=== PATIENT | male | born 1960 | race Caucasian/White ===

== ENCOUNTER 2019-04-24 15:02 | Outpatient (CLI) | payer MEDICARE ==
[2019-04-24 17:30] LABS: #Basophils 0.1 thou/uL (0.0-0.2); #Eosinphils 0.2 thou/uL (0.0-0.7); #Lymphocytes 2.3 thou/uL (1.20-3.40); #Monocytes 0.9 thou/uL (0.11-0.59); #Neutrophils 4.1 thou/uL (1.40-6.50); %Basophils 0.8 % (0.0-1.0); %Eosinophils 2.6 % (0.0-10.0); %Lymphocytes 30.2 % (21.0-51.0); %Monocytes 12.1 % (0.0-10.0); %Neutrophils 54.3 % (42.0-75.0); Hemoglobin 15.7 g/dL (14.0-18.0); Mean Corpuscular HGB CONC 32.6 g/dL (32.0-36.0); Mean Corpuscular Volume 92.1 fL (78.0-98.0); Mean Platelet Volume 8.6 fL (7.4-10.4); Platelet Count 200 thou/uL (130-400); RBC Distribution Width 13.2 % (11.5-14.5); Red Blood Cell (RBC) Count 5.22 mill/uL (4.70-6.10); White Blood Cell (WBC) Count 7.6 thou/uL (4.8-10.8)
[2019-04-24 17:35] LABS: PTT 29.4 SEC (22.9-36.1); Prothrombin Time 12.9 SEC (12.0-14.7)
[2019-04-24 17:49] LABS: ALT (SGPT) 17 U/L (8-55); AST (SGOT) 14 U/L (5-34); Albumin 3.9 g/dL (3.5-5.0); Alkaline Phosphatase 58 U/L (40-150); Anion Gap 13 mmol/L (10-20); BUN (Urea Nitrogen) 10 mg/dL (8.4-25.7); Bilirubin, Total 0.4 mg/dL (0.2-1.2); Calc. Creatinine Clearance 0 mL/min (70-130); Calcium 9.5 mg/dL (7.8-10.44); Carbon Dioxide 22 mmol/L (22-29); Chloride 108 mmol/L (98-107); Estimated GFR-MDRD Greater than 90; Globulin 2.9 g/dL (2.4-3.5); Glucose 103 mg/dL (70-105); Potassium 4.1 mmol/L (3.5-5.1); Protein, Total 6.8 g/dL (6.0-8.3); Sodium 139 mmol/L (136-145)
== END 2019-04-24 15:03 | disposition home or self-care (01) ==
LOC: LABBT 15:02
PROVIDERS: ATTEND Internal Medicine Cardiovascular Disease
DX: Z01.812 Encounter for preprocedural laboratory examination (principal); R07.9 Chest pain, unspecified
CPT/HCPCS: 80053; 85025; 85610; 85730

== ENCOUNTER 2019-05-01 06:55 | Day surgery (SDC) | payer MEDICARE ==
[2019-04-24 16:06] VITALS: BMI 57.8
[2019-05-01 08:29] LABS: Cardiac Risk 5.1 (Less than 4.5)
[2019-05-01] MEDS ORDERED: Midazolam HCl 2 mg/2 ml Vial ONE (08:52)
[2019-05-01] MEDS ORDERED: Fentanyl 100 MCG/2 ML VIAL ONE (08:52)
[2019-05-01] MEDS ORDERED: Nitroglycerin 100MG/250ML BOT 250 ML ONE (09:04)
[2019-05-01] MEDS ORDERED: Heparin 10,000 UNITS/1 ML VIAL ONE (09:04)
[2019-05-01] MEDS ORDERED: Verapamil 5 MG/2 ML VIAL ONE (09:04)
== END 2019-05-01 12:51 | disposition home or self-care (01) ==
LOC: CCL 06:55
PROVIDERS: ATTEND Internal Medicine Cardiovascular Disease
PROC: 4A023N7 Measurement of Cardiac Sampling and Pressure, Left Heart, Percutaneous Approach (ICD-10-PCS; principal; 2019-05-01)
PROC: B2001ZZ Plain Radiography of Single Coronary Artery using Low Osmolar Contrast (ICD-10-PCS; 2019-05-01)
DX: R07.89 Other chest pain (principal); I10 Essential (primary) hypertension; E11.9 Type 2 diabetes mellitus without complications; E78.00 Pure hypercholesterolemia, unspecified; E78.5 Hyperlipidemia, unspecified; F17.210 Nicotine dependence, cigarettes, uncomplicated; F32.9 Major depressive disorder, single episode, unspecified; G47.00 Insomnia, unspecified; G47.33 Obstructive sleep apnea (adult) (pediatric); L40.50 Arthropathic psoriasis, unspecified; E87.1 Hypo-osmolality and hyponatremia; E66.01 Morbid (severe) obesity due to excess calories; Z68.43 Body mass index [BMI] 50.0-59.9, adult; Z79.82 Long term (current) use of aspirin; Z79.84 Long term (current) use of oral hypoglycemic drugs; Z79.899 Other long term (current) drug therapy
CPT/HCPCS: 36416; 80061; 93458; 99152; C1769; J1644; J2250; J3010

== ENCOUNTER 2020-02-08 19:30 | Outpatient (CLI) | payer MEDICARE, OTHER | END 2020-02-08 19:31 | disposition home or self-care (01) | LOC: SLEEPLAB 19:30 | PROVIDERS: ATTEND Internal Medicine | DX: G47.33 Obstructive sleep apnea (adult) (pediatric) (principal); E66.9 Obesity, unspecified; K21.9 Gastro-esophageal reflux disease without esophagitis; R06.83 Snoring; R53.83 Other fatigue; F41.9 Anxiety disorder, unspecified; E11.9 Type 2 diabetes mellitus without complications; G47.00 Insomnia, unspecified; F32.9 Major depressive disorder, single episode, unspecified; Z68.43 Body mass index [BMI] 50.0-59.9, adult | CPT/HCPCS: 95811 ==

== ENCOUNTER 2023-10-02 00:57 | Inpatient (IN) | payer MEDICARE ==
[2023-10-02 01:55] LABS: #Basophils 0.1 thou/uL (0.0-0.2); #Eosinphils 0.1 thou/uL (0.0-0.7); #Monocytes 0.9 thou/uL (0.11-0.59); #Neutrophils 5.1 thou/uL (1.40-6.50); %Basophils 0.7 % (0.0-1.0); %Eosinophils 0.7 % (0.0-10.0); %Lymphocytes 25.9 % (21.0-51.0); %Monocytes 10.6 % (0.0-10.0); %Neutrophils 61.6 % (42.0-75.0); Hematocrit 43.4 % (42.0-52.0); Mean Corpuscular HGB CONC 34.6 g/dL (32.0-36.0); Mean Corpuscular Hemoglobin 31.4 pg (27.0-31.0); Mean Platelet Volume 11.4 fL (7.4-10.4); Platelet Count 190 10x3/uL (130-400); RBC Distribution Width 13.2 % (11.5-14.5); Red Blood Cell (RBC) Count 4.77 mill/uL (4.70-6.10); White Blood Cell (WBC) Count 8.3 10x3/uL (4.8-10.8)
[2023-10-02 02:22] LABS: ALT (SGPT) 87 U/L (8-55); AST (SGOT) 53 U/L (5-34); Albumin 3.7 g/dL (3.4-4.8); Alkaline Phosphatase 68 U/L (40-110); Anion Gap 15 mmol/L (10-20); BUN (Urea Nitrogen) 11 mg/dL (8.4-25.7); Bilirubin, Total 0.7 mg/dL (0.2-1.2); Calc. Creatinine Clearance 0 mL/min (70-130); Calcium 9.1 mg/dL (7.8-10.44); Carbon Dioxide 23 mmol/L (23-31); Chloride 103 mmol/L (98-107); Estimated GFR 98; Globulin 2.9 g/dL (2.4-3.5); Glucose 113 mg/dL (80-115); Potassium 3.5 mmol/L (3.5-5.1); Protein, Total 6.6 g/dL (5.8-8.1); Sodium 137 mmol/L (136-145)
[2023-10-02] MEDS ORDERED: HYDROcodone/Acetaminophen 5/325 mg Tablet PO PRN (02:42)
[2023-10-02] MEDS ORDERED: Acetaminophen 650 MG Suppository PR PRN (02:42)
[2023-10-02] MEDS ORDERED: Morphine 4 MG/ML VIAL SLOW IVP PRN (02:57)
[2023-10-02] MEDS ORDERED: Ondansetron PF 4 MG/2 ML Vial IVP PRN (03:00)
[2023-10-02] MEDS ORDERED: Ondansetron ODT 4 MG TAB SL PRN (03:00)
[2023-10-02] MEDS ORDERED: Aspirin 325 MG TAB ONE (03:15)
[2023-10-02] MEDS ORDERED: Zolpidem Tartrate 5 MG TAB PO PRN (03:22)
[2023-10-02] MEDS ORDERED: Dextrose 5% in Water 1,000 ML IV PRN (03:23)
[2023-10-02] MEDS ORDERED: Dextrose 50% Abboject 50 ML SYRINGE SLOW IVP PRN (03:23)
[2023-10-02] MEDS ORDERED: Polyethylene Glycol 3350 17 GM Packet PO PRN (03:23)
[2023-10-02] MEDS ORDERED: HumaLOG 300 UNITS/3 ML VIAL SC PRN (03:23)
[2023-10-02] MEDS ORDERED: Glucagon 1 MG/ML KIT IM PRN (03:23)
[2023-10-02] MEDS ORDERED: Cyclobenzaprine 10 MG TAB PO SCH (03:30)
[2023-10-02 03:48] LABS: Actual Bicarbonate (HCO3v) 26.1 mEq/L (22-28); Base Excess 2.9 mEq/L (-2.0 to +3.0); Calcium, Ionized (venous) 1.07 mmol/L (1.16-1.32); Chloride (VBG) 102 mmol/L (98-106); Hematocrit-VBG 46 % (42.0-52.0); Hemoglobin (Hb) 15.7 g/dL (13.1-17.2); Potassium (VBG) 3.68 mmol/L (3.70-5.30); Sodium 136 mmol/L (133-146); pH (venous) 7.479 (7.32-7.43)
[2023-10-02 03:52] LABS: #Basophils 0.1 thou/uL (0.0-0.2); #Eosinphils 0.1 thou/uL (0.0-0.7); #Monocytes 0.8 thou/uL (0.11-0.59); #Neutrophils 5.2 thou/uL (1.40-6.50); %Basophils 0.6 % (0.0-1.0); %Eosinophils 0.7 % (0.0-10.0); %Lymphocytes 26.7 % (21.0-51.0); %Neutrophils 61.3 % (42.0-75.0); Mean Corpuscular HGB CONC 34.9 g/dL (32.0-36.0); Mean Corpuscular Hemoglobin 32.5 pg (27.0-31.0); Mean Corpuscular Volume 93.1 fl (78.0-98.0); Mean Platelet Volume 10.5 fL (7.4-10.4); Platelet Count 185 10x3/uL (130-400); RBC Distribution Width 13.3 % (11.5-14.5); Red Blood Cell (RBC) Count 4.62 mill/uL (4.70-6.10); White Blood Cell (WBC) Count 8.4 10x3/uL (4.8-10.8)
[2023-10-02 04:03] LABS: Hemoglobin A1c 5.3 % (4.0-6.0)
[2023-10-02 04:07] LABS: INR-International Normal Ratio 1.2; PTT 35.2 sec (22.9-36.1); Prothrombin Time 15.4 sec (12.0-14.7)
[2023-10-02 04:22] LABS: ALT (SGPT) 86 U/L (8-55); AST (SGOT) 53 U/L (5-34); Albumin 3.7 g/dL (3.4-4.8); Alkaline Phosphatase 66 U/L (40-110); Anion Gap 16 mmol/L (10-20); BUN (Urea Nitrogen) 10 mg/dL (8.4-25.7); Bilirubin, Total 0.6 mg/dL (0.2-1.2); Calc. Creatinine Clearance 0 mL/min (70-130); Carbon Dioxide 23 mmol/L (23-31); Chloride 103 mmol/L (98-107); Estimated GFR 97; Globulin 2.8 g/dL (2.4-3.5); Glucose 107 mg/dL (80-115); Potassium 3.6 mmol/L (3.5-5.1); Protein, Total 6.5 g/dL (5.8-8.1); Sodium 138 mmol/L (136-145)
[2023-10-02 04:30] VITALS: BMI 53.1
[2023-10-02 04:31] LABS: Troponin I 0.127 ng/mL (< 0.028)
[2023-10-02] MEDS: Doxycycline 100 MG in Sodium Chloride 0.9% 100 ML IVPB SCH ×2 (04:31→19:11)
[2023-10-02] MEDS ORDERED: Heparin 25,000 units/D5W 500 ML ONE (04:45)
[2023-10-02] MEDS ORDERED: Cyclobenzaprine 10 MG TAB ONE (05:20)
[2023-10-02] MEDS ORDERED: Levothyroxine Sodium 125 MCG TAB ONE (07:44)
[2023-10-02] MEDS: Levothyroxine Sodium 125 MCG TAB PO SCH (07:48)
[2023-10-02 07:56] LABS: Troponin I 0.126 ng/mL (< 0.028)
[2023-10-02] MEDS: sulfaSALAzine 500 MG TAB PO SCH (09:07)
[2023-10-02] MEDS ORDERED: Pantoprazole 40 MG VIAL ONE (09:08)
[2023-10-02] MEDS: Pantoprazole 40 MG VIAL IVP SCH (09:21)
[2023-10-02] MEDS ORDERED: Iopamidol 370 76% 100 ML VIAL ONE (11:31)
[2023-10-02 11:33] LABS: Troponin I 0.123 ng/mL (< 0.028)
[2023-10-02 11:37] LABS: PTT Greater than 250.0 sec (22.9-36.1)
[2023-10-02 14:12] LABS: PTT 141.3 sec (22.9-36.1)
[2023-10-02] MEDS: Atorvastatin Calcium 10 MG TAB PO SCH (23:06)
[2023-10-02] MEDS: Heparin 25,000 units/D5W 500 ML IVPB SCH (23:15)
[2023-10-02] MEDS: HYDROcodone/Acetaminophen 5/325 mg Tablet PO PRN (23:28)
[2023-10-03] MEDS: Levothyroxine Sodium 125 MCG TAB PO SCH (05:24)
[2023-10-03] MEDS: Doxycycline 100 MG in Sodium Chloride 0.9% 100 ML IVPB SCH ×2 (05:24→16:12)
[2023-10-03] MEDS: Lisinopril 10 MG TAB PO SCH (10:11)
[2023-10-03] MEDS: Pantoprazole 40 MG VIAL IVP SCH (10:12)
[2023-10-03] MEDS: sulfaSALAzine 500 MG TAB PO SCH (10:12)
[2023-10-03] MEDS: HYDROcodone/Acetaminophen 5/325 mg Tablet PO PRN ×2 (10:15→20:58)
[2023-10-03] MEDS: Heparin 25,000 units/D5W 500 ML IVPB SCH (13:44)
[2023-10-03] MEDS: Atorvastatin Calcium 10 MG TAB PO SCH (20:58)
[2023-10-04] MEDS: Doxycycline 100 MG in Sodium Chloride 0.9% 100 ML IVPB SCH ×2 (03:50→15:28)
[2023-10-04] MEDS: HYDROcodone/Acetaminophen 5/325 mg Tablet PO PRN ×2 (04:19→16:51)
[2023-10-04] MEDS: Levothyroxine Sodium 125 MCG TAB PO SCH (05:45)
[2023-10-04 07:48] LABS: PTT 130.6 sec (22.9-36.1)
[2023-10-04] MEDS: sulfaSALAzine 500 MG TAB PO SCH (09:26)
[2023-10-04] MEDS: Lisinopril 10 MG TAB PO SCH (09:26)
[2023-10-04] MEDS: Pantoprazole 40 MG VIAL IVP SCH (09:26)
[2023-10-04] MEDS: Heparin 10,000 UNITS/ 10 ML VIAL SLOW IVP SCH (17:45)
[2023-10-04] MEDS: Atorvastatin Calcium 10 MG TAB PO SCH (20:43)
[2023-10-04] MEDS: Heparin 25,000 units/D5W 500 ML IVPB SCH (22:32)
[2023-10-05 00:14] LABS: PTT 131.6 sec (22.9-36.1)
[2023-10-05] MEDS: Doxycycline 100 MG in Sodium Chloride 0.9% 100 ML IVPB SCH ×2 (04:26→16:05)
[2023-10-05] MEDS: Levothyroxine Sodium 125 MCG TAB PO SCH (05:17)
[2023-10-05] MEDS: Heparin 10,000 UNITS/ 10 ML VIAL SLOW IVP SCH (08:14)
[2023-10-05 08:18] LABS: #Eosinphils 0.2 thou/uL (0.0-0.7); #Monocytes 0.9 thou/uL (0.11-0.59); %Basophils 0.2 % (0.0-1.0); %Eosinophils 2.1 % (0.0-10.0); %Monocytes 10.4 % (0.0-10.0); %Neutrophils 68.6 % (42.0-75.0); Hematocrit 40.6 % (42.0-52.0); Hemoglobin 13.8 g/dL (14.0-18.0); Mean Corpuscular Hemoglobin 32.2 pg (27.0-31.0); Mean Corpuscular Volume 94.6 fl (78.0-98.0); Mean Platelet Volume 10.5 fL (7.4-10.4); Platelet Count 188 10x3/uL (130-400); RBC Distribution Width 14.1 % (11.5-14.5); Red Blood Cell (RBC) Count 4.29 mill/uL (4.70-6.10); White Blood Cell (WBC) Count 8.8 10x3/uL (4.8-10.8)
[2023-10-05 08:36] LABS: Anion Gap 13 mmol/L (10-20); BUN (Urea Nitrogen) 6 mg/dL (8.4-25.7); Calc. Creatinine Clearance 225 mL/min (70-130); Calcium 8.5 mg/dL (7.8-10.44); Carbon Dioxide 25 mmol/L (23-31); Chloride 101 mmol/L (98-107); Estimated GFR 99; Glucose 107 mg/dL (80-115); Potassium 3.2 mmol/L (3.5-5.1); Sodium 136 mmol/L (136-145)
[2023-10-05] MEDS ORDERED: Potassium Chloride 20 MEQ TAB PO SCH (09:00)
[2023-10-05] MEDS: Lisinopril 10 MG TAB PO SCH (09:36)
[2023-10-05] MEDS: sulfaSALAzine 500 MG TAB PO SCH (09:38)
[2023-10-05] MEDS: HYDROcodone/Acetaminophen 5/325 mg Tablet PO PRN (09:39)
[2023-10-05] MEDS: Pantoprazole 40 MG VIAL IVP SCH (09:40)
[2023-10-05] MEDS ORDERED: Simethicone Chewable 80 MG TAB PO PRN (09:54)
[2023-10-05] MEDS ORDERED: Dexamethasone 4 MG TAB PO SCH (12:30)
[2023-10-05] MEDS: Gabapentin 300 MG CAP PO SCH ×2 (13:55→21:32)
[2023-10-05] MEDS: Dexamethasone 4 MG TAB PO SCH ×2 (16:53→23:21)
[2023-10-05] MEDS ORDERED: FLU VACC QS2023-24(6MOS UP)/PF 60 MCG/0.5 ML SYRINGE IM ONE (17:00)
[2023-10-05] MEDS ORDERED: Apixaban 5 MG TAB PO SCH (18:05)
[2023-10-05] MEDS: Atorvastatin Calcium 10 MG TAB PO SCH (21:32)
[2023-10-06] MEDS: Doxycycline 100 MG in Sodium Chloride 0.9% 100 ML IVPB SCH ×2 (03:39→16:13)
[2023-10-06] MEDS: Dexamethasone 4 MG TAB PO SCH ×4 (05:39→23:41)
[2023-10-06] MEDS: Levothyroxine Sodium 125 MCG TAB PO SCH (05:39)
[2023-10-06] MEDS: Pantoprazole 40 MG VIAL IVP SCH (08:32)
[2023-10-06] MEDS: sulfaSALAzine 500 MG TAB PO SCH (08:33)
[2023-10-06] MEDS: Gabapentin 300 MG CAP PO SCH ×3 (08:33→20:40)
[2023-10-06] MEDS: Apixaban 5 MG TAB PO SCH ×2 (08:33→20:40)
[2023-10-06] MEDS: Lisinopril 10 MG TAB PO SCH (08:33)
[2023-10-06] MEDS: HYDROcodone/Acetaminophen 5/325 mg Tablet PO PRN ×2 (08:42→15:27)
[2023-10-06] MEDS: Atorvastatin Calcium 10 MG TAB PO SCH (20:41)
[2023-10-07 04:57] LABS: #Monocytes 0.8 thou/uL (0.11-0.59); #Neutrophils 13.7 thou/uL (1.40-6.50); %Basophils 0.1 % (0.0-1.0); %Lymphocytes 5.6 % (21.0-51.0); %Monocytes 5.3 % (0.0-10.0); %Neutrophils 88.3 % (42.0-75.0); Hematocrit 43.7 % (42.0-52.0); Mean Corpuscular HGB CONC 34.3 g/dL (32.0-36.0); Mean Corpuscular Hemoglobin 32.3 pg (27.0-31.0); Mean Platelet Volume 11.8 fL (7.4-10.4); Platelet Count 218 10x3/uL (130-400); RBC Distribution Width 14.4 % (11.5-14.5); Red Blood Cell (RBC) Count 4.65 mill/uL (4.70-6.10); White Blood Cell (WBC) Count 15.5 10x3/uL (4.8-10.8)
[2023-10-07 05:32] LABS: Anion Gap 13 mmol/L (10-20); BUN (Urea Nitrogen) 9 mg/dL (8.4-25.7); Calc. Creatinine Clearance 250 mL/min (70-130); Calcium 9.6 mg/dL (7.8-10.44); Carbon Dioxide 27 mmol/L (23-31); Chloride 102 mmol/L (98-107); Estimated GFR 103; Glucose 129 mg/dL (80-115); Magnesium 2.3 mg/dL (1.6-2.6); Potassium 3.6 mmol/L (3.5-5.1); Sodium 138 mmol/L (136-145)
[2023-10-07] MEDS: Levothyroxine Sodium 125 MCG TAB PO SCH (05:42)
[2023-10-07] MEDS: Dexamethasone 4 MG TAB PO SCH ×4 (05:42→23:05)
[2023-10-07] MEDS: sulfaSALAzine 500 MG TAB PO SCH (09:23)
[2023-10-07] MEDS: Gabapentin 300 MG CAP PO SCH ×3 (09:23→20:01)
[2023-10-07] MEDS: Lisinopril 10 MG TAB PO SCH (09:23)
[2023-10-07] MEDS: Apixaban 5 MG TAB PO SCH ×2 (09:24→20:02)
[2023-10-07] MEDS: Pantoprazole 40 MG VIAL IVP SCH (09:24)
[2023-10-07] MEDS: Atorvastatin Calcium 10 MG TAB PO SCH (20:02)
[2023-10-08] MEDS: Dexamethasone 4 MG TAB PO SCH ×3 (06:04→17:42)
[2023-10-08] MEDS: Levothyroxine Sodium 125 MCG TAB PO SCH (06:04)
[2023-10-08 06:29] LABS: #Monocytes 0.7 thou/uL (0.11-0.59); #Neutrophils 12.2 thou/uL (1.40-6.50); %Basophils 0.1 % (0.0-1.0); %Lymphocytes 4.5 % (21.0-51.0); %Monocytes 5.3 % (0.0-10.0); %Neutrophils 89.4 % (42.0-75.0); Hematocrit 41.9 % (42.0-52.0); Hemoglobin 14.2 g/dL (14.0-18.0); Mean Corpuscular HGB CONC 33.9 g/dL (32.0-36.0); Mean Corpuscular Hemoglobin 32.1 pg (27.0-31.0); Mean Corpuscular Volume 94.6 fl (78.0-98.0); Mean Platelet Volume 11.8 fL (7.4-10.4); Platelet Count 213 10x3/uL (130-400); RBC Distribution Width 14.2 % (11.5-14.5); Red Blood Cell (RBC) Count 4.43 mill/uL (4.70-6.10); White Blood Cell (WBC) Count 13.7 10x3/uL (4.8-10.8)
[2023-10-08 06:59] LABS: Anion Gap 15 mmol/L (10-20); BUN (Urea Nitrogen) 13 mg/dL (8.4-25.7); Calc. Creatinine Clearance 250 mL/min (70-130); Calcium 8.7 mg/dL (7.8-10.44); Carbon Dioxide 25 mmol/L (23-31); Chloride 104 mmol/L (98-107); Estimated GFR 103; Glucose 149 mg/dL (80-115); Magnesium 2.3 mg/dL (1.6-2.6); Potassium 4.5 mmol/L (3.5-5.1); Sodium 139 mmol/L (136-145)
[2023-10-08] MEDS: Apixaban 5 MG TAB PO SCH ×2 (08:42→21:55)
[2023-10-08] MEDS: Lisinopril 10 MG TAB PO SCH (08:42)
[2023-10-08] MEDS: Pantoprazole 40 MG VIAL IVP SCH (08:42)
[2023-10-08] MEDS: sulfaSALAzine 500 MG TAB PO SCH (08:43)
[2023-10-08] MEDS: Gabapentin 300 MG CAP PO SCH ×3 (08:43→21:56)
[2023-10-08] MEDS: HumaLOG 300 UNITS/3 ML VIAL SC PRN ×2 (11:31→18:04)
[2023-10-08] MEDS: Atorvastatin Calcium 10 MG TAB PO SCH (21:55)
[2023-10-09] MEDS: Dexamethasone 4 MG TAB PO SCH ×3 (01:55→12:37)
[2023-10-09 05:33] LABS: #Monocytes 1.1 thou/uL (0.11-0.59); #Neutrophils 10.4 thou/uL (1.40-6.50); %Basophils 0.2 % (0.0-1.0); %Lymphocytes 6.3 % (21.0-51.0); %Monocytes 9.1 % (0.0-10.0); %Neutrophils 83.6 % (42.0-75.0); Hematocrit 43.5 % (42.0-52.0); Hemoglobin 14.5 g/dL (14.0-18.0); Mean Corpuscular HGB CONC 33.3 g/dL (32.0-36.0); Mean Corpuscular Hemoglobin 31.5 pg (27.0-31.0); Mean Corpuscular Volume 94.6 fl (78.0-98.0); Mean Platelet Volume 11.4 fL (7.4-10.4); Platelet Count 203 10x3/uL (130-400); RBC Distribution Width 14.2 % (11.5-14.5); White Blood Cell (WBC) Count 12.5 10x3/uL (4.8-10.8)
[2023-10-09] MEDS: Levothyroxine Sodium 125 MCG TAB PO SCH (05:42)
[2023-10-09 06:09] LABS: Anion Gap 10 mmol/L (10-20); BUN (Urea Nitrogen) 13 mg/dL (8.4-25.7); Calc. Creatinine Clearance 246 mL/min (70-130); Calcium 8.5 mg/dL (7.8-10.44); Carbon Dioxide 26 mmol/L (23-31); Chloride 105 mmol/L (98-107); Estimated GFR 102; Glucose 142 mg/dL (80-115); Magnesium 2.4 mg/dL (1.6-2.6); Potassium 4.4 mmol/L (3.5-5.1); Sodium 137 mmol/L (136-145)
[2023-10-09] MEDS: Pantoprazole 40 MG VIAL IVP SCH (09:48)
[2023-10-09] MEDS: Gabapentin 300 MG CAP PO SCH (09:48)
[2023-10-09] MEDS: Apixaban 5 MG TAB PO SCH (09:49)
[2023-10-09] MEDS: sulfaSALAzine 500 MG TAB PO SCH (09:49)
[2023-10-09] MEDS: Lisinopril 10 MG TAB PO SCH (09:50)
[2023-10-09 13:48] VITALS: BP 118/58; TEMP 97.3
[2023-10-12] MEDS ORDERED: Apixaban 5 MG TAB PO SCH (21:00)
== END 2023-10-09 15:00 | DRG 299 ==
LOC: ERS 00:57 → ERHOLD 02:42 → 2NO 15:55 → OBSVTOIN 10-03 11:44
PROVIDERS: ADMIT Internal Medicine; ATTEND Family Medicine
PROC: 5A09357 Assistance with Respiratory Ventilation, Less than 24 Consecutive Hours, Continuous Positive Airway Pressure (ICD-10-PCS; principal; 2023-10-03)
DX: I82.432 Acute embolism and thrombosis of left popliteal vein (principal); I26.92 Saddle embolus of pulmonary artery without acute cor pulmonale; I50.31 Acute diastolic (congestive) heart failure; J96.01 Acute respiratory failure with hypoxia; L03.116 Cellulitis of left lower limb; Z68.43 Body mass index [BMI] 50.0-59.9, adult; I5A Non-ischemic myocardial injury (non-traumatic); G47.33 Obstructive sleep apnea (adult) (pediatric); G89.29 Other chronic pain; M48.061 Spinal stenosis, lumbar region without neurogenic claudication; E66.01 Morbid (severe) obesity due to excess calories; I11.0 Hypertensive heart disease with heart failure; E03.9 Hypothyroidism, unspecified; E78.00 Pure hypercholesterolemia, unspecified; E11.51 Type 2 diabetes mellitus with diabetic peripheral angiopathy without gangrene; F17.210 Nicotine dependence, cigarettes, uncomplicated; M51.36 Other intervertebral disc degeneration, lumbar region; Z79.899 Other long term (current) drug therapy; Z79.84 Long term (current) use of oral hypoglycemic drugs; Z79.82 Long term (current) use of aspirin; Z98.890 Other specified postprocedural states
CPT/HCPCS: 36415; 36416; 70450; 71045; 71275; 80048; 80053; 82805; 83036; 83735; 83880; 84145; 84439; 84443; 84484; 85025; 85610; 85730; 93005; 93010; 93306; 93970; 96374; 96376; C9113; G0378; J1644; J1815; J3490; J8540; Q9967

== ENCOUNTER 2023-10-13 17:00 | Inpatient (IN) | payer MEDICARE ==
[2023-10-13] MEDS ORDERED: Zolpidem Tartrate 5 MG TAB PO PRN (19:39)
[2023-10-13] MEDS ORDERED: Calcium Carbonate 500 MG ChewTAB PO PRN (19:40)
[2023-10-13 19:41] VITALS: BMI 52.0
[2023-10-13] MEDS ORDERED: Glucagon 1 MG/ML KIT IM PRN (20:15)
[2023-10-13] MEDS ORDERED: Dextrose 5% in Water 1,000 ML IV PRN (20:15)
[2023-10-13] MEDS ORDERED: Dextrose 50% Abboject 50 ML SYRINGE IVP PRN (20:15)
[2023-10-13] MEDS ORDERED: Semaglutide [Ozempic] 1 MG/0.75 ML Pen.Injctr SC SCH (20:15)
[2023-10-13 20:27] LABS: #Monocytes 0.5 thou/uL (0.11-0.59); #Neutrophils 9.7 thou/uL (1.40-6.50); %Basophils 0.2 % (0.0-1.0); %Eosinophils 0.1 % (0.0-10.0); %Monocytes 4.6 % (0.0-10.0); %Neutrophils 88.3 % (42.0-75.0); Hematocrit 50.6 % (42.0-52.0); Mean Corpuscular HGB CONC 33.6 g/dL (32.0-36.0); Mean Corpuscular Hemoglobin 32.3 pg (27.0-31.0); Mean Platelet Volume 10.6 fL (7.4-10.4); Platelet Count 215 10x3/uL (130-400); RBC Distribution Width 14.4 % (11.5-14.5); Red Blood Cell (RBC) Count 5.27 mill/uL (4.70-6.10); White Blood Cell (WBC) Count 10.9 10x3/uL (4.8-10.8)
[2023-10-13 20:47] LABS: Anion Gap 11 mmol/L (10-20); BUN (Urea Nitrogen) 18 mg/dL (8.4-25.7); Calc. Creatinine Clearance 235 mL/min (70-130); Calcium 8.8 mg/dL (7.8-10.44); Carbon Dioxide 28 mmol/L (23-31); Chloride 102 mmol/L (98-107); Estimated GFR 101; Glucose 145 mg/dL (80-115); Potassium 4.6 mmol/L (3.5-5.1); Sodium 136 mmol/L (136-145)
[2023-10-13] MEDS: Dexamethasone 4 mg/ml Vial SLOW IVP SCH (20:53)
[2023-10-13] MEDS: Atorvastatin Calcium 10 MG TAB PO SCH (20:53)
[2023-10-13] MEDS: Gabapentin 300 MG CAP PO SCH (20:53)
[2023-10-13] MEDS: sulfaSALAzine 500 MG TAB PO SCH (20:53)
[2023-10-13] MEDS: HYDROcodone/Acetaminophen 5/325 mg Tablet PO PRN (22:07)
[2023-10-14] MEDS: Dexamethasone 4 mg/ml Vial SLOW IVP SCH ×3 (04:05→19:30)
[2023-10-14] MEDS: Levothyroxine Sodium 125 MCG TAB PO SCH (05:21)
[2023-10-14 06:46] LABS: Anion Gap 10 mmol/L (10-20); BUN (Urea Nitrogen) 18 mg/dL (8.4-25.7); Calc. Creatinine Clearance 251 mL/min (70-130); Calcium 8.9 mg/dL (7.8-10.44); Carbon Dioxide 31 mmol/L (23-31); Chloride 101 mmol/L (98-107); Estimated GFR 104; Glucose 116 mg/dL (80-115); Potassium 4.5 mmol/L (3.5-5.1); Sodium 137 mmol/L (136-145)
[2023-10-14] MEDS ORDERED: Pantoprazole 40 MG VIAL IVP SCH (09:00)
[2023-10-14] MEDS: Gabapentin 300 MG CAP PO SCH ×3 (09:32→20:46)
[2023-10-14] MEDS: sulfaSALAzine 500 MG TAB PO SCH ×2 (09:32→20:46)
[2023-10-14] MEDS: Lisinopril 10 MG TAB PO SCH (09:33)
[2023-10-14] MEDS: HYDROcodone/Acetaminophen 5/325 mg Tablet PO PRN ×2 (09:43→17:00)
[2023-10-14] MEDS: HumaLOG 300 UNITS/3 ML VIAL SC PRN ×2 (13:16→18:47)
[2023-10-14] MEDS: Atorvastatin Calcium 10 MG TAB PO SCH (20:46)
[2023-10-15] MEDS: HYDROcodone/Acetaminophen 5/325 mg Tablet PO PRN ×3 (00:21→08:54)
[2023-10-15] MEDS: Dexamethasone 4 mg/ml Vial SLOW IVP SCH ×3 (04:29→21:02)
[2023-10-15] MEDS: Levothyroxine Sodium 125 MCG TAB PO SCH (06:22)
[2023-10-15] MEDS: Gabapentin 300 MG CAP PO SCH ×3 (08:53→21:01)
[2023-10-15] MEDS: sulfaSALAzine 500 MG TAB PO SCH ×2 (08:53→21:01)
[2023-10-15] MEDS: Lisinopril 10 MG TAB PO SCH (09:01)
[2023-10-15] MEDS ORDERED: Polyethylene Glycol 3350 17 GM Packet PO PRN (10:48)
[2023-10-15] MEDS: HumaLOG 300 UNITS/3 ML VIAL SC PRN (13:35)
[2023-10-15] MEDS: Senokot S 8.6-50 MG TAB PO SCH (21:01)
[2023-10-15] MEDS: Atorvastatin Calcium 10 MG TAB PO SCH (21:01)
[2023-10-16] MEDS: Dexamethasone 4 mg/ml Vial SLOW IVP SCH ×3 (03:52→21:05)
[2023-10-16 04:14] LABS: #Monocytes 1.3 thou/uL (0.11-0.59); #Neutrophils 9.2 thou/uL (1.40-6.50); %Basophils 0.1 % (0.0-1.0); %Lymphocytes 6.8 % (21.0-51.0); %Monocytes 11.2 % (0.0-10.0); %Neutrophils 81.1 % (42.0-75.0); Hematocrit 50.3 % (42.0-52.0); Hemoglobin 16.8 g/dL (14.0-18.0); Mean Corpuscular HGB CONC 33.4 g/dL (32.0-36.0); Mean Corpuscular Hemoglobin 31.9 pg (27.0-31.0); Mean Corpuscular Volume 95.4 fl (78.0-98.0); Mean Platelet Volume 10.8 fL (7.4-10.4); Platelet Count 221 10x3/uL (130-400); RBC Distribution Width 14.2 % (11.5-14.5); Red Blood Cell (RBC) Count 5.27 mill/uL (4.70-6.10); White Blood Cell (WBC) Count 11.4 10x3/uL (4.8-10.8)
[2023-10-16 04:31] LABS: INR-International Normal Ratio 1.1; Prothrombin Time 15.1 sec (12.0-14.7)
[2023-10-16 04:36] LABS: Anion Gap 12 mmol/L (10-20); BUN (Urea Nitrogen) 14 mg/dL (8.4-25.7); Calc. Creatinine Clearance 267 mL/min (70-130); Calcium 8.6 mg/dL (7.8-10.44); Carbon Dioxide 27 mmol/L (23-31); Chloride 103 mmol/L (98-107); Estimated GFR 105; Glucose 135 mg/dL (80-115); Magnesium 2.2 mg/dL (1.6-2.6); Potassium 4.2 mmol/L (3.5-5.1); Sodium 138 mmol/L (136-145)
[2023-10-16] MEDS: Levothyroxine Sodium 125 MCG TAB PO SCH (05:49)
[2023-10-16] MEDS ORDERED: Lidocaine 1% (PF) 30 ML VIAL ONE (06:12)
[2023-10-16] MEDS: Lisinopril 10 MG TAB PO SCH (09:01)
[2023-10-16] MEDS: Senokot S 8.6-50 MG TAB PO SCH ×2 (09:01→21:08)
[2023-10-16] MEDS: sulfaSALAzine 500 MG TAB PO SCH ×2 (09:01→21:04)
[2023-10-16] MEDS: Gabapentin 300 MG CAP PO SCH ×3 (09:02→21:04)
[2023-10-16] MEDS: Polyethylene Glycol 3350 17 GM Packet PO SCH (09:02)
[2023-10-16] MEDS: HYDROcodone/Acetaminophen 5/325 mg Tablet PO PRN ×2 (10:17→15:14)
[2023-10-16] MEDS ORDERED: Iopamidol 370 76% 100 ML VIAL ONE (10:25)
[2023-10-16] MEDS ORDERED: FLU VACC QS2023-24(6MOS UP)/PF 60 MCG/0.5 ML SYRINGE IM ONE (20:00)
[2023-10-16] MEDS: Atorvastatin Calcium 10 MG TAB PO SCH (21:04)
[2023-10-17] MEDS: Dexamethasone 4 mg/ml Vial SLOW IVP SCH ×3 (04:23→21:34)
[2023-10-17] MEDS: Levothyroxine Sodium 125 MCG TAB PO SCH (06:15)
[2023-10-17] MEDS: HYDROcodone/Acetaminophen 5/325 mg Tablet PO PRN ×3 (07:47→17:03)
[2023-10-17] MEDS: sulfaSALAzine 500 MG TAB PO SCH ×2 (09:34→21:33)
[2023-10-17] MEDS: Senokot S 8.6-50 MG TAB PO SCH ×2 (09:34→21:34)
[2023-10-17] MEDS: Polyethylene Glycol 3350 17 GM Packet PO SCH (09:34)
[2023-10-17] MEDS: Gabapentin 300 MG CAP PO SCH ×3 (09:34→21:33)
[2023-10-17] MEDS: Lisinopril 10 MG TAB PO SCH (09:34)
[2023-10-17] MEDS: HumaLOG 300 UNITS/3 ML VIAL SC PRN (17:57)
[2023-10-17] MEDS: Atorvastatin Calcium 10 MG TAB PO SCH (21:34)
[2023-10-18] MEDS: Levothyroxine Sodium 125 MCG TAB PO SCH (05:19)
[2023-10-18] MEDS: Dexamethasone 4 mg/ml Vial SLOW IVP SCH ×3 (05:19→20:55)
[2023-10-18] MEDS: HYDROcodone/Acetaminophen 5/325 mg Tablet PO PRN ×3 (06:09→15:22)
[2023-10-18] MEDS: Lisinopril 10 MG TAB PO SCH (09:00)
[2023-10-18] MEDS: sulfaSALAzine 500 MG TAB PO SCH ×2 (09:00→20:55)
[2023-10-18] MEDS: Senokot S 8.6-50 MG TAB PO SCH ×2 (09:01→20:55)
[2023-10-18] MEDS: Gabapentin 300 MG CAP PO SCH ×3 (09:01→20:55)
[2023-10-18] MEDS: Polyethylene Glycol 3350 17 GM Packet PO SCH (09:06)
[2023-10-18] MEDS: HumaLOG 300 UNITS/3 ML VIAL SC PRN (18:04)
[2023-10-18] MEDS: Atorvastatin Calcium 10 MG TAB PO SCH (20:55)
[2023-10-19] MEDS: HYDROcodone/Acetaminophen 5/325 mg Tablet PO PRN ×5 (02:56→19:59)
[2023-10-19 04:11] LABS: #Monocytes 1.1 thou/uL (0.11-0.59); #Neutrophils 10.6 thou/uL (1.40-6.50); %Basophils 0.1 % (0.0-1.0); %Lymphocytes 6.9 % (21.0-51.0); %Monocytes 8.4 % (0.0-10.0); %Neutrophils 83.9 % (42.0-75.0); Hemoglobin 16.3 g/dL (14.0-18.0); Mean Corpuscular HGB CONC 33.3 g/dL (32.0-36.0); Mean Corpuscular Hemoglobin 31.7 pg (27.0-31.0); Mean Corpuscular Volume 95.3 fl (78.0-98.0); Mean Platelet Volume 11.4 fL (7.4-10.4); Platelet Count 199 10x3/uL (130-400); RBC Distribution Width 14.1 % (11.5-14.5); Red Blood Cell (RBC) Count 5.14 mill/uL (4.70-6.10); White Blood Cell (WBC) Count 12.7 10x3/uL (4.8-10.8)
[2023-10-19 04:40] LABS: Anion Gap 14 mmol/L (10-20); BUN (Urea Nitrogen) 13 mg/dL (8.4-25.7); Calc. Creatinine Clearance 263 mL/min (70-130); Calcium 8.2 mg/dL (7.8-10.44); Carbon Dioxide 26 mmol/L (23-31); Chloride 101 mmol/L (98-107); Estimated GFR 105; Glucose 166 mg/dL (80-115); Potassium 3.9 mmol/L (3.5-5.1); Sodium 137 mmol/L (136-145)
[2023-10-19] MEDS: Dexamethasone 4 mg/ml Vial SLOW IVP SCH ×3 (05:15→20:00)
[2023-10-19] MEDS: Levothyroxine Sodium 125 MCG TAB PO SCH (05:15)
[2023-10-19] MEDS: Gabapentin 300 MG CAP PO SCH ×3 (08:18→20:00)
[2023-10-19] MEDS: Lisinopril 10 MG TAB PO SCH (08:18)
[2023-10-19] MEDS: Senokot S 8.6-50 MG TAB PO SCH ×2 (08:18→19:58)
[2023-10-19] MEDS: sulfaSALAzine 500 MG TAB PO SCH ×2 (08:19→19:58)
[2023-10-19] MEDS: Polyethylene Glycol 3350 17 GM Packet PO SCH (08:29)
[2023-10-19] MEDS: HumaLOG 300 UNITS/3 ML VIAL SC PRN (17:41)
[2023-10-19] MEDS: Atorvastatin Calcium 10 MG TAB PO SCH (19:58)
[2023-10-20] MEDS: Dexamethasone 4 mg/ml Vial SLOW IVP SCH ×3 (04:38→20:28)
[2023-10-20] MEDS: Levothyroxine Sodium 125 MCG TAB PO SCH (05:58)
[2023-10-20] MEDS: HumaLOG 300 UNITS/3 ML VIAL SC PRN ×2 (06:01→17:51)
[2023-10-20] MEDS: Polyethylene Glycol 3350 17 GM Packet PO SCH (08:36)
[2023-10-20] MEDS: HYDROcodone/Acetaminophen 5/325 mg Tablet PO PRN ×4 (08:36→20:25)
[2023-10-20] MEDS: Lisinopril 10 MG TAB PO SCH (08:37)
[2023-10-20] MEDS: Senokot S 8.6-50 MG TAB PO SCH ×2 (08:37→20:27)
[2023-10-20] MEDS: sulfaSALAzine 500 MG TAB PO SCH ×2 (08:37→20:28)
[2023-10-20] MEDS: Gabapentin 300 MG CAP PO SCH ×3 (08:37→20:27)
[2023-10-20] MEDS: Atorvastatin Calcium 10 MG TAB PO SCH (20:28)
[2023-10-21] MEDS: Dexamethasone 4 mg/ml Vial SLOW IVP SCH ×3 (03:57→20:20)
[2023-10-21 04:41] LABS: INR-International Normal Ratio 1.1; PTT 37.1 sec (22.9-36.1); Prothrombin Time 14.3 sec (12.0-14.7)
[2023-10-21 04:48] LABS: Anion Gap 13 mmol/L (10-20); BUN (Urea Nitrogen) 16 mg/dL (8.4-25.7); Calc. Creatinine Clearance 271 mL/min (70-130); Calcium 8.5 mg/dL (7.8-10.44); Carbon Dioxide 25 mmol/L (23-31); Chloride 104 mmol/L (98-107); Estimated GFR 106; Glucose 242 mg/dL (80-115); Magnesium 1.9 mg/dL (1.6-2.6); Potassium 3.7 mmol/L (3.5-5.1); Sodium 138 mmol/L (136-145)
[2023-10-21] MEDS: Levothyroxine Sodium 125 MCG TAB PO SCH (05:45)
[2023-10-21] MEDS: HumaLOG 300 UNITS/3 ML VIAL SC PRN ×2 (05:47→18:23)
[2023-10-21 05:53] LABS: #Neutrophils 11.8 thou/uL (1.40-6.50); %Basophils 0.1 % (0.0-1.0); %Lymphocytes 6.8 % (21.0-51.0); %Monocytes 7.2 % (0.0-10.0); %Neutrophils 84.8 % (42.0-75.0); Hematocrit 48.1 % (42.0-52.0); Hemoglobin 15.9 g/dL (14.0-18.0); Mean Corpuscular HGB CONC 33.1 g/dL (32.0-36.0); Mean Corpuscular Volume 96.8 fl (78.0-98.0); Mean Platelet Volume 11.9 fL (7.4-10.4); Platelet Count 178 10x3/uL (130-400); RBC Distribution Width 14.4 % (11.5-14.5); Red Blood Cell (RBC) Count 4.97 mill/uL (4.70-6.10); White Blood Cell (WBC) Count 13.9 10x3/uL (4.8-10.8)
[2023-10-21] MEDS: Polyethylene Glycol 3350 17 GM Packet PO SCH (08:10)
[2023-10-21] MEDS: sulfaSALAzine 500 MG TAB PO SCH ×2 (08:10→20:20)
[2023-10-21] MEDS: Senokot S 8.6-50 MG TAB PO SCH ×2 (08:11→20:22)
[2023-10-21] MEDS: HYDROcodone/Acetaminophen 5/325 mg Tablet PO PRN ×4 (08:11→20:20)
[2023-10-21] MEDS: Lisinopril 10 MG TAB PO SCH (08:13)
[2023-10-21] MEDS: Gabapentin 300 MG CAP PO SCH ×3 (08:13→20:22)
[2023-10-21] MEDS: Atorvastatin Calcium 10 MG TAB PO SCH (20:20)
[2023-10-21 21:41] LABS: Bacteria/HPF 4+ HPF (None Seen); Bilirubin Negative (Negative); Blood, Urine 1+ (Negative); CAUTI Indications for Culture Dysuria,urgency,freq; Clarity Turbid (Clear); Glucose, Urine (Dipstick) 100 mg/dL (Negative); Ketone, Urine Negative (Negative); Leukocyte 500 Leu/uL (Negative); Nitrite Negative (Negative); Protein, Urine (Dipstick) Negative (Neg-Trace); Specific Gravity, Urine 1.019 (1.002-1.036); Squamous Epithelial 0-3 HPF (0-3); Urobilinogen Normal mg/dL (Less than 2); WBC/HPF Greater than 50 HPF (0-3); Yeast-Budding Rare HPF (None Seen); pH, Urine 6.5 (5.0-9.0)
[2023-10-21 22:12] LABS: Urine Culture Reflex Yes Yes
[2023-10-21] MEDS ORDERED: Morphine 2 MG/ML VIAL SLOW IVP SCH (22:45)
[2023-10-22] MEDS: Dexamethasone 4 mg/ml Vial SLOW IVP SCH ×3 (03:50→20:59)
[2023-10-22 04:21] LABS: #Basophils 0.1 thou/uL (0.0-0.2); #Monocytes 1.5 thou/uL (0.11-0.59); #Neutrophils 15.3 thou/uL (1.40-6.50); %Basophils 0.3 % (0.0-1.0); %Eosinophils 0.1 % (0.0-10.0); %Lymphocytes 7.1 % (21.0-51.0); %Monocytes 7.9 % (0.0-10.0); %Neutrophils 83.4 % (42.0-75.0); Hematocrit 48.2 % (42.0-52.0); Hemoglobin 16.5 g/dL (14.0-18.0); Mean Corpuscular HGB CONC 34.2 g/dL (32.0-36.0); Mean Corpuscular Hemoglobin 31.7 pg (27.0-31.0); Mean Corpuscular Volume 92.7 fl (78.0-98.0); Mean Platelet Volume 10.3 fL (7.4-10.4); Platelet Count 182 10x3/uL (130-400); RBC Distribution Width 13.8 % (11.5-14.5); White Blood Cell (WBC) Count 18.3 10x3/uL (4.8-10.8)
[2023-10-22 04:36] LABS: INR-International Normal Ratio 0.9; PTT 31.2 sec (22.9-36.1); Prothrombin Time 12.5 sec (12.0-14.7)
[2023-10-22 04:49] LABS: Anion Gap 10 mmol/L (10-20); BUN (Urea Nitrogen) 15 mg/dL (8.4-25.7); Calc. Creatinine Clearance 299 mL/min (70-130); Calcium 8.7 mg/dL (7.8-10.44); Carbon Dioxide 28 mmol/L (23-31); Chloride 103 mmol/L (98-107); Estimated GFR 109; Glucose 166 mg/dL (80-115); Magnesium 2.4 mg/dL (1.6-2.6); Potassium 4.3 mmol/L (3.5-5.1); Sodium 137 mmol/L (136-145)
[2023-10-22] MEDS ORDERED: EPINEPHrine 1 MG/ML VIAL ONE (08:19)
[2023-10-22] MEDS ORDERED: Vancomycin 1 GM VIAL ONE (08:20)
[2023-10-22] MEDS ORDERED: Thrombin 5000 UNITS/5 ML VIAL ONE (08:20)
[2023-10-22] MEDS ORDERED: Bupivacaine PF 0.5% 30 ML VIAL ONE (08:20)
[2023-10-22] MEDS: Gabapentin 300 MG CAP PO SCH ×3 (09:22→21:02)
[2023-10-22] MEDS: Levothyroxine Sodium 125 MCG TAB PO SCH (09:22)
[2023-10-22] MEDS: sulfaSALAzine 500 MG TAB PO SCH ×2 (09:23→21:06)
[2023-10-22] MEDS: Senokot S 8.6-50 MG TAB PO SCH ×2 (09:23→21:02)
[2023-10-22] MEDS: Polyethylene Glycol 3350 17 GM Packet PO SCH (09:23)
[2023-10-22] MEDS: Lisinopril 10 MG TAB PO SCH (09:23)
[2023-10-22] MEDS ORDERED: CEFAZOLIN 2 GM VIAL ONE (09:39)
[2023-10-22] MEDS ORDERED: Sodium Chloride 0.9% 100 ML ONE (09:39)
[2023-10-22] MEDS ORDERED: Sevoflurane 250 ML INH ANEST BOTTLE ONE (09:54)
[2023-10-22] MEDS ORDERED: PROPOFOL 20 ML ONE (09:57)
[2023-10-22] MEDS ORDERED: fentaNYL PF 100 MCG/2 ML SYRINGE ONE ×3 (09:57→15:05)
[2023-10-22] MEDS ORDERED: Rocuronium Bromide 10 MG/ML (10ML VIAL) ONE ×3 (09:58→11:25)
[2023-10-22] MEDS ORDERED: Lidocaine 2% PF 5 ML VIAL ONE (09:58)
[2023-10-22] MEDS ORDERED: Vecuronium 10 MG VIAL ONE ×2 (10:10→15:04)
[2023-10-22] MEDS ORDERED: Lidocaine 1% PF 5 ML VIAL ONE (10:10)
[2023-10-22] MEDS ORDERED: Dexamethasone 20 MG/5 ML VIAL ONE (10:10)
[2023-10-22] MEDS ORDERED: Ondansetron PF 4 MG/2 ML Vial ONE ×2 (10:10→16:07)
[2023-10-22] MEDS ORDERED: PROPOFOL 200 MG/20 ML VIAL ONE (10:10)
[2023-10-22] MEDS ORDERED: PHENYLEPHRINE-NS 100 MCG/ML 10 ML SYRINGE ONE (11:30)
[2023-10-22] MEDS ORDERED: Phenylephrine 40 MG/NS 250 ML 250 ML ONE (11:49)
[2023-10-22] MEDS ORDERED: Dexamethasone 4 mg/ml Vial ONE (11:55)
[2023-10-22] MEDS ORDERED: ePHEDrine Sulfate 50 MG/10 ML VIAL ONE (13:47)
[2023-10-22] MEDS ORDERED: CEFAZOLIN 1 GM VIAL ONE (14:17)
[2023-10-22] MEDS ORDERED: Dexmedetomidine 200 MCG/2 ML VIAL ONE (16:07)
[2023-10-22] MEDS ORDERED: SUGAMMADEX SODIUM 200 MG/2 ML VIAL ONE ×2 (16:20→16:22)
[2023-10-22] MEDS ORDERED: Bacitracin Zinc Ointment 30 gm TUBE ONE (16:52)
[2023-10-22] MEDS ORDERED: Ondansetron HCl/PF 4 MG/2 ML Vial IVP PRN (17:36)
[2023-10-22] MEDS ORDERED: Promethazine HCl 25 MG/ML VIAL IM PRN (17:36)
[2023-10-22] MEDS ORDERED: fentaNYL 50 mcg/mL 1 mL Vial ONE ×3 (17:58→18:48)
[2023-10-22] MEDS: CEFAZOLIN 2 GM in Sodium Chloride 0.9% 100 ML IVPB SCH (20:13)
[2023-10-22] MEDS: Atorvastatin Calcium 10 MG TAB PO SCH (21:02)
[2023-10-22] MEDS: tiZANidine HCl 4 MG TAB PO PRN (21:02)
[2023-10-22] MEDS: HYDROcodone/Acetaminophen 7.5/325 mg Tablet PO PRN (21:06)
[2023-10-22] MEDS: Sodium Chloride 0.9% 1,000 ML IV SCH (22:46)
[2023-10-23] MEDS: CEFAZOLIN 2 GM in Sodium Chloride 0.9% 100 ML IVPB SCH ×3 (01:39→17:47)
[2023-10-23] MEDS: Dexamethasone 4 mg/ml Vial SLOW IVP SCH ×3 (03:15→20:30)
[2023-10-23] MEDS: Levothyroxine Sodium 125 MCG TAB PO SCH (05:17)
[2023-10-23 05:43] LABS: #Monocytes 1.5 thou/uL (0.11-0.59); #Neutrophils 16.3 thou/uL (1.40-6.50); %Basophils 0.1 % (0.0-1.0); %Lymphocytes 4.1 % (21.0-51.0); %Monocytes 7.8 % (0.0-10.0); Hematocrit 41.5 % (42.0-52.0); Hemoglobin 14.1 g/dL (14.0-18.0); Mean Corpuscular Hemoglobin 32.2 pg (27.0-31.0); Mean Corpuscular Volume 94.7 fl (78.0-98.0); Mean Platelet Volume 10.4 fL (7.4-10.4); Platelet Count 147 10x3/uL (130-400); RBC Distribution Width 14.1 % (11.5-14.5); Red Blood Cell (RBC) Count 4.38 mill/uL (4.70-6.10); White Blood Cell (WBC) Count 18.7 10x3/uL (4.8-10.8)
[2023-10-23] MEDS: HYDROcodone/Acetaminophen 7.5/325 mg Tablet PO PRN ×4 (05:53→20:26)
[2023-10-23] MEDS: Sodium Chloride 0.9% 1,000 ML IV SCH (05:59)
[2023-10-23 06:11] LABS: Anion Gap 8 mmol/L (10-20); BUN (Urea Nitrogen) 15 mg/dL (8.4-25.7); Calc. Creatinine Clearance 285 mL/min (70-130); Calcium 8.3 mg/dL (7.8-10.44); Carbon Dioxide 30 mmol/L (23-31); Chloride 103 mmol/L (98-107); Estimated GFR 107; Glucose 169 mg/dL (80-115); Potassium 4.5 mmol/L (3.5-5.1); Sodium 136 mmol/L (136-145)
[2023-10-23] MEDS: Gabapentin 300 MG CAP PO SCH ×3 (08:14→20:24)
[2023-10-23] MEDS: tiZANidine HCl 4 MG TAB PO PRN (08:14)
[2023-10-23] MEDS: Polyethylene Glycol 3350 17 GM Packet PO SCH (08:14)
[2023-10-23] MEDS: Lisinopril 10 MG TAB PO SCH (08:14)
[2023-10-23] MEDS: Senokot S 8.6-50 MG TAB PO SCH ×2 (08:15→20:24)
[2023-10-23] MEDS: sulfaSALAzine 500 MG TAB PO SCH ×2 (08:26→20:24)
[2023-10-23 09:01] LABS: Actual Bicarbonate (HCO3a) 27.5 mEq/L (22-28); Analyzer IN Cardio OR; Base Excess (BEa) 2.3 mEq/L (-2.0 to +3.0); CO2 Tension 44.6 mmHg (35.0-45.0); Calcium, Ionized (arterial) 1.17 mmol/L (1.12-1.30); Hematocrit-ABG 46 % (42.0-52.0); Hemoglobin (Hb) 15.8 g/dL (14.0-18.0); O2 Tension (PaO2), arterial 311.5 mmHg (> 80.0); Potassium - ABG Lab 4.48 mmol/L (3.70-5.30); pH, Arterial 7.408 (7.35-7.45)
[2023-10-23 09:02] LABS: Puncture Site Arterial Line
[2023-10-23 09:11] LABS: Prothrombin Time 13.3 sec (12.0-14.7)
[2023-10-23] MEDS: HumaLOG 300 UNITS/3 ML VIAL SC PRN ×2 (11:45→17:47)
[2023-10-23] MEDS: Atorvastatin Calcium 10 MG TAB PO SCH (20:24)
[2023-10-24] MEDS: CEFAZOLIN 2 GM in Sodium Chloride 0.9% 100 ML IVPB SCH ×3 (01:02→16:32)
[2023-10-24] MEDS: HYDROcodone/Acetaminophen 7.5/325 mg Tablet PO PRN ×4 (04:24→20:30)
[2023-10-24] MEDS: Dexamethasone 4 mg/ml Vial SLOW IVP SCH ×3 (04:27→20:32)
[2023-10-24] MEDS: Levothyroxine Sodium 125 MCG TAB PO SCH (05:14)
[2023-10-24 05:36] LABS: #Monocytes 1.2 thou/uL (0.11-0.59); %Basophils 0.1 % (0.0-1.0); %Eosinophils 0.3 % (0.0-10.0); %Lymphocytes 7.9 % (21.0-51.0); %Monocytes 7.7 % (0.0-10.0); %Neutrophils 82.9 % (42.0-75.0); Hematocrit 38.3 % (42.0-52.0); Hemoglobin 12.8 g/dL (14.0-18.0); Mean Corpuscular HGB CONC 33.4 g/dL (32.0-36.0); Mean Corpuscular Volume 95.8 fl (78.0-98.0); Mean Platelet Volume 10.4 fL (7.4-10.4); Platelet Count 124 10x3/uL (130-400); RBC Distribution Width 14.3 % (11.5-14.5); White Blood Cell (WBC) Count 15.7 10x3/uL (4.8-10.8)
[2023-10-24 05:51] LABS: INR-International Normal Ratio 0.9; PTT 25.4 sec (22.9-36.1); Prothrombin Time 12.5 sec (12.0-14.7)
[2023-10-24 06:01] LABS: Anion Gap 9 mmol/L (10-20); BUN (Urea Nitrogen) 12 mg/dL (8.4-25.7); Calc. Creatinine Clearance 334 mL/min (70-130); Calcium 8.1 mg/dL (7.8-10.44); Carbon Dioxide 29 mmol/L (23-31); Chloride 104 mmol/L (98-107); Estimated GFR 113; Glucose 150 mg/dL (80-115); Sodium 138 mmol/L (136-145)
[2023-10-24] MEDS: Gabapentin 300 MG CAP PO SCH ×3 (09:23→20:32)
[2023-10-24] MEDS: sulfaSALAzine 500 MG TAB PO SCH ×2 (09:24→20:32)
[2023-10-24] MEDS: Lisinopril 10 MG TAB PO SCH (09:24)
[2023-10-24] MEDS: Senokot S 8.6-50 MG TAB PO SCH ×2 (09:25→20:33)
[2023-10-24] MEDS: Polyethylene Glycol 3350 17 GM Packet PO SCH (09:25)
[2023-10-24] MEDS: Morphine 2 MG/ML VIAL SLOW IVP PRN (12:36)
[2023-10-24] MEDS: HumaLOG 300 UNITS/3 ML VIAL SC PRN ×2 (16:41→22:01)
[2023-10-24] MEDS: Atorvastatin Calcium 10 MG TAB PO SCH (20:32)
[2023-10-25] MEDS: CEFAZOLIN 2 GM in Sodium Chloride 0.9% 100 ML IVPB SCH ×3 (00:46→16:36)
[2023-10-25] MEDS: Dexamethasone 4 mg/ml Vial SLOW IVP SCH ×3 (04:11→21:13)
[2023-10-25 04:48] LABS: #Eosinphils 0.2 thou/uL (0.0-0.7); #Monocytes 0.9 thou/uL (0.11-0.59); #Neutrophils 11.6 thou/uL (1.40-6.50); %Basophils 0.1 % (0.0-1.0); %Eosinophils 1.6 % (0.0-10.0); %Lymphocytes 8.1 % (21.0-51.0); %Monocytes 6.2 % (0.0-10.0); %Neutrophils 82.8 % (42.0-75.0); Hematocrit 38.2 % (42.0-52.0); Hemoglobin 12.7 g/dL (14.0-18.0); Mean Corpuscular HGB CONC 33.2 g/dL (32.0-36.0); Mean Corpuscular Hemoglobin 31.9 pg (27.0-31.0); Mean Platelet Volume 10.9 fL (7.4-10.4); Platelet Count 134 10x3/uL (130-400); RBC Distribution Width 14.3 % (11.5-14.5); Red Blood Cell (RBC) Count 3.98 mill/uL (4.70-6.10)
[2023-10-25 05:02] LABS: PTT 26.2 sec (22.9-36.1); Prothrombin Time 13.1 sec (12.0-14.7)
[2023-10-25] MEDS: HYDROcodone/Acetaminophen 7.5/325 mg Tablet PO PRN ×2 (05:16→11:49)
[2023-10-25] MEDS: Levothyroxine Sodium 125 MCG TAB PO SCH (05:17)
[2023-10-25 05:24] LABS: Anion Gap 9 mmol/L (10-20); BUN (Urea Nitrogen) 14 mg/dL (8.4-25.7); Calc. Creatinine Clearance 299 mL/min (70-130); Calcium 8.2 mg/dL (7.8-10.44); Carbon Dioxide 29 mmol/L (23-31); Chloride 103 mmol/L (98-107); Estimated GFR 109; Glucose 202 mg/dL (80-115); Magnesium 1.9 mg/dL (1.6-2.6); Potassium 4.1 mmol/L (3.5-5.1); Sodium 137 mmol/L (136-145)
[2023-10-25] MEDS: HumaLOG 300 UNITS/3 ML VIAL SC PRN (06:10)
[2023-10-25] MEDS: Gabapentin 300 MG CAP PO SCH ×3 (10:01→21:12)
[2023-10-25] MEDS: Lisinopril 10 MG TAB PO SCH (10:02)
[2023-10-25] MEDS: Polyethylene Glycol 3350 17 GM Packet PO SCH (10:03)
[2023-10-25] MEDS: sulfaSALAzine 500 MG TAB PO SCH ×2 (10:03→21:12)
[2023-10-25] MEDS: Senokot S 8.6-50 MG TAB PO SCH ×2 (10:03→21:25)
[2023-10-25] MEDS: Morphine 2 MG/ML VIAL SLOW IVP PRN (21:09)
[2023-10-25] MEDS: Atorvastatin Calcium 10 MG TAB PO SCH (21:12)
[2023-10-25] MEDS: tiZANidine HCl 4 MG TAB PO PRN (21:12)
[2023-10-26] MEDS: CEFAZOLIN 2 GM in Sodium Chloride 0.9% 100 ML IVPB SCH ×3 (00:35→17:00)
[2023-10-26] MEDS: HYDROcodone/Acetaminophen 7.5/325 mg Tablet PO PRN ×3 (00:36→14:57)
[2023-10-26 04:43] LABS: #Eosinphils 0.2 thou/uL (0.0-0.7); #Monocytes 0.7 thou/uL (0.11-0.59); #Neutrophils 9.8 thou/uL (1.40-6.50); %Basophils 0.3 % (0.0-1.0); %Eosinophils 1.4 % (0.0-10.0); %Lymphocytes 8.9 % (21.0-51.0); %Monocytes 5.6 % (0.0-10.0); %Neutrophils 81.9 % (42.0-75.0); Hematocrit 40.1 % (42.0-52.0); Hemoglobin 13.4 g/dL (14.0-18.0); Mean Corpuscular HGB CONC 33.4 g/dL (32.0-36.0); Mean Corpuscular Hemoglobin 31.5 pg (27.0-31.0); Mean Corpuscular Volume 94.4 fl (78.0-98.0); Mean Platelet Volume 10.5 fL (7.4-10.4); Platelet Count 146 10x3/uL (130-400); RBC Distribution Width 14.2 % (11.5-14.5); Red Blood Cell (RBC) Count 4.25 mill/uL (4.70-6.10); White Blood Cell (WBC) Count 11.9 10x3/uL (4.8-10.8)
[2023-10-26] MEDS: Levothyroxine Sodium 125 MCG TAB PO SCH (04:58)
[2023-10-26] MEDS: Dexamethasone 4 mg/ml Vial SLOW IVP SCH ×3 (04:58→22:14)
[2023-10-26 05:03] LABS: INR-International Normal Ratio 0.9; PTT 27.3 sec (22.9-36.1)
[2023-10-26 05:28] LABS: Anion Gap 10 mmol/L (10-20); BUN (Urea Nitrogen) 13 mg/dL (8.4-25.7); Calc. Creatinine Clearance 322 mL/min (70-130); Calcium 8.4 mg/dL (7.8-10.44); Carbon Dioxide 28 mmol/L (23-31); Chloride 103 mmol/L (98-107); Estimated GFR 111; Glucose 204 mg/dL (80-115); Magnesium 1.9 mg/dL (1.6-2.6); Potassium 3.8 mmol/L (3.5-5.1); Sodium 137 mmol/L (136-145)
[2023-10-26] MEDS: Morphine 2 MG/ML VIAL SLOW IVP PRN ×2 (06:11→22:12)
[2023-10-26] MEDS: sulfaSALAzine 500 MG TAB PO SCH ×2 (08:18→22:24)
[2023-10-26] MEDS: Lisinopril 10 MG TAB PO SCH (08:18)
[2023-10-26] MEDS: Gabapentin 300 MG CAP PO SCH ×3 (08:19→22:24)
[2023-10-26] MEDS: Polyethylene Glycol 3350 17 GM Packet PO SCH (08:20)
[2023-10-26] MEDS: Senokot S 8.6-50 MG TAB PO SCH ×2 (08:35→22:24)
[2023-10-26] MEDS: HumaLOG 300 UNITS/3 ML VIAL SC PRN ×3 (11:39→22:58)
[2023-10-26] MEDS: Atorvastatin Calcium 10 MG TAB PO SCH (22:25)
[2023-10-27] MEDS: HYDROcodone/Acetaminophen 7.5/325 mg Tablet PO PRN ×2 (01:49→13:45)
[2023-10-27] MEDS: CEFAZOLIN 2 GM in Sodium Chloride 0.9% 100 ML IVPB SCH ×3 (01:49→16:22)
[2023-10-27 05:05] LABS: #Eosinphils 0.3 thou/uL (0.0-0.7); #Monocytes 0.9 thou/uL (0.11-0.59); #Neutrophils 9.8 thou/uL (1.40-6.50); %Basophils 0.2 % (0.0-1.0); %Lymphocytes 11.4 % (21.0-51.0); %Monocytes 6.8 % (0.0-10.0); %Neutrophils 75.7 % (42.0-75.0); Hemoglobin 13.5 g/dL (14.0-18.0); Mean Corpuscular HGB CONC 33.8 g/dL (32.0-36.0); Mean Corpuscular Hemoglobin 32.1 pg (27.0-31.0); Mean Corpuscular Volume 95.2 fl (78.0-98.0); Mean Platelet Volume 10.2 fL (7.4-10.4); Platelet Count 167 10x3/uL (130-400); RBC Distribution Width 14.3 % (11.5-14.5); White Blood Cell (WBC) Count 12.9 10x3/uL (4.8-10.8)
[2023-10-27] MEDS: Dexamethasone 4 mg/ml Vial SLOW IVP SCH ×3 (05:10→20:39)
[2023-10-27 05:19] LABS: PTT 24.2 sec (22.9-36.1); Prothrombin Time 13.1 sec (12.0-14.7)
[2023-10-27 05:44] LABS: Anion Gap 13 mmol/L (10-20); BUN (Urea Nitrogen) 13 mg/dL (8.4-25.7); Calc. Creatinine Clearance 310 mL/min (70-130); Calcium 8.5 mg/dL (7.8-10.44); Carbon Dioxide 28 mmol/L (23-31); Chloride 104 mmol/L (98-107); Estimated GFR 110; Glucose 163 mg/dL (80-115); Sodium 141 mmol/L (136-145)
[2023-10-27] MEDS: Levothyroxine Sodium 125 MCG TAB PO SCH (06:32)
[2023-10-27] MEDS: Morphine 2 MG/ML VIAL SLOW IVP PRN ×2 (10:50→20:37)
[2023-10-27] MEDS: Gabapentin 300 MG CAP PO SCH ×3 (10:51→20:39)
[2023-10-27] MEDS: sulfaSALAzine 500 MG TAB PO SCH ×2 (10:52→20:39)
[2023-10-27] MEDS: Senokot S 8.6-50 MG TAB PO SCH ×2 (10:53→20:39)
[2023-10-27] MEDS: Polyethylene Glycol 3350 17 GM Packet PO SCH (10:53)
[2023-10-27] MEDS: Lisinopril 10 MG TAB PO SCH (10:54)
[2023-10-27] MEDS: tiZANidine HCl 4 MG TAB PO PRN (20:37)
[2023-10-27] MEDS: Atorvastatin Calcium 10 MG TAB PO SCH (20:39)
[2023-10-28] MEDS: CEFAZOLIN 2 GM in Sodium Chloride 0.9% 100 ML IVPB SCH ×3 (01:27→16:53)
[2023-10-28] MEDS: Dexamethasone 4 mg/ml Vial SLOW IVP SCH ×2 (04:51→16:53)
[2023-10-28] MEDS: Levothyroxine Sodium 125 MCG TAB PO SCH (04:51)
[2023-10-28] MEDS: HYDROcodone/Acetaminophen 7.5/325 mg Tablet PO PRN ×3 (08:46→20:17)
[2023-10-28] MEDS: Gabapentin 300 MG CAP PO SCH ×3 (08:46→20:18)
[2023-10-28] MEDS: Lisinopril 10 MG TAB PO SCH (08:47)
[2023-10-28] MEDS: sulfaSALAzine 500 MG TAB PO SCH ×2 (08:47→20:19)
[2023-10-28] MEDS: Senokot S 8.6-50 MG TAB PO SCH ×2 (11:01→20:20)
[2023-10-28] MEDS: Polyethylene Glycol 3350 17 GM Packet PO SCH (11:01)
[2023-10-28] MEDS: HumaLOG 300 UNITS/3 ML VIAL SC PRN ×2 (12:23→22:33)
[2023-10-28] MEDS: Atorvastatin Calcium 10 MG TAB PO SCH (20:19)
[2023-10-29] MEDS: HYDROcodone/Acetaminophen 7.5/325 mg Tablet PO PRN ×3 (00:18→18:07)
[2023-10-29] MEDS: CEFAZOLIN 2 GM in Sodium Chloride 0.9% 100 ML IVPB SCH (00:18)
[2023-10-29] MEDS: Dexamethasone 4 mg/ml Vial SLOW IVP SCH (04:13)
[2023-10-29 05:27] LABS: Hematocrit 42.4 % (42.0-52.0); Manual Diff?? YES; Mean Corpuscular Hemoglobin 32.1 pg (27.0-31.0); Mean Corpuscular Volume 97.2 fl (78.0-98.0); Mean Platelet Volume 9.9 fL (7.4-10.4); Platelet Count 163 10x3/uL (130-400); RBC Distribution Width 14.6 % (11.5-14.5); Red Blood Cell (RBC) Count 4.36 mill/uL (4.70-6.10); White Blood Cell (WBC) Count 12.9 10x3/uL (4.8-10.8)
[2023-10-29 05:35] LABS: Hemoglobin A1c 6.3 % (4.0-6.0)
[2023-10-29] MEDS: Levothyroxine Sodium 125 MCG TAB PO SCH (05:45)
[2023-10-29 05:55] LABS: Anion Gap 11 mmol/L (10-20); BUN (Urea Nitrogen) 15 mg/dL (8.4-25.7); Calc. Creatinine Clearance 299 mL/min (70-130); Calcium 8.5 mg/dL (7.8-10.44); Carbon Dioxide 31 mmol/L (23-31); Chloride 104 mmol/L (98-107); Estimated GFR 109; Glucose 152 mg/dL (80-115); Potassium 4.1 mmol/L (3.5-5.1); Sodium 142 mmol/L (136-145)
[2023-10-29 05:58] LABS: Delete Auto Diff?? YES
[2023-10-29 06:34] LABS: Anisocytosis SLIGHT = 6-15 cells HPF (0-5); Band 4 % (5-11); CellaVision Operator ID LAB.JMM; Eosinophils 2 % (0-10); Lymphocytes 11 % (21-51); Macrocytosis SLIGHT = 6-15 cells HPF (0-5); Metamyelocyte 1 % (0-0); Monocytes 5 % (0-10); Neutrophil 76 % (42-75); Platelet Adequacy Comment Platelets Normal; Total Cell Count 100
[2023-10-29] MEDS: Gabapentin 300 MG CAP PO SCH ×3 (09:11→20:24)
[2023-10-29] MEDS: sulfaSALAzine 500 MG TAB PO SCH ×2 (09:11→20:23)
[2023-10-29] MEDS: Lisinopril 10 MG TAB PO SCH (09:12)
[2023-10-29] MEDS: Senokot S 8.6-50 MG TAB PO SCH ×2 (09:49→20:28)
[2023-10-29] MEDS: Polyethylene Glycol 3350 17 GM Packet PO SCH (09:49)
[2023-10-29] MEDS: HumaLOG 300 UNITS/3 ML VIAL SC PRN ×2 (11:52→17:07)
[2023-10-29] MEDS: Atorvastatin Calcium 10 MG TAB PO SCH (20:24)
[2023-10-30] MEDS: tiZANidine HCl 4 MG TAB PO PRN (03:58)
[2023-10-30] MEDS: HYDROcodone/Acetaminophen 7.5/325 mg Tablet PO PRN ×3 (03:58→14:27)
[2023-10-30 05:02] LABS: Hematocrit 41.8 % (42.0-52.0); Hemoglobin 13.7 g/dL (14.0-18.0); Manual Diff?? YES; Mean Corpuscular HGB CONC 32.8 g/dL (32.0-36.0); Mean Corpuscular Hemoglobin 32.1 pg (27.0-31.0); Mean Corpuscular Volume 97.9 fl (78.0-98.0); Mean Platelet Volume 9.6 fL (7.4-10.4); Platelet Count 153 10x3/uL (130-400); RBC Distribution Width 14.7 % (11.5-14.5); Red Blood Cell (RBC) Count 4.27 mill/uL (4.70-6.10); White Blood Cell (WBC) Count 11.8 10x3/uL (4.8-10.8)
[2023-10-30 05:27] LABS: Anion Gap 11 mmol/L (10-20); BUN (Urea Nitrogen) 16 mg/dL (8.4-25.7); Calc. Creatinine Clearance 305 mL/min (70-130); Calcium 8.6 mg/dL (7.8-10.44); Carbon Dioxide 30 mmol/L (23-31); Chloride 100 mmol/L (98-107); Estimated GFR 109; Glucose 163 mg/dL (80-115); Potassium 4.1 mmol/L (3.5-5.1); Sodium 137 mmol/L (136-145)
[2023-10-30 05:29] LABS: Delete Auto Diff?? YES
[2023-10-30] MEDS: Levothyroxine Sodium 125 MCG TAB PO SCH (05:29)
[2023-10-30 05:57] LABS: Band 2 % (5-11); CellaVision Operator ID lab.abc; Eosinophils 6 % (0-10); Lymphocytes 19 % (21-51); Metamyelocyte 2 % (0-0); Monocytes 5 % (0-10); Myelocyte 1 % (0-0); Neutrophil 62 % (42-75); Platelet Adequacy Comment Platelets Normal; RBC Morphology Within Normal Limits; Reactive Lymphocytes 3 % (0-10); Total Cell Count 100
[2023-10-30] MEDS: Gabapentin 300 MG CAP PO SCH ×3 (08:09→21:12)
[2023-10-30] MEDS: sulfaSALAzine 500 MG TAB PO SCH ×2 (08:09→21:13)
[2023-10-30] MEDS: Lisinopril 10 MG TAB PO SCH (08:09)
[2023-10-30] MEDS: Senokot S 8.6-50 MG TAB PO SCH ×2 (10:44→21:13)
[2023-10-30] MEDS: Polyethylene Glycol 3350 17 GM Packet PO SCH (10:44)
[2023-10-30] MEDS: Atorvastatin Calcium 10 MG TAB PO SCH (21:12)
[2023-10-30] MEDS: Ondansetron ODT 4 MG TAB PO PRN (22:37)
[2023-10-31 05:34] LABS: Hematocrit 43.8 % (42.0-52.0); Hemoglobin 14.4 g/dL (14.0-18.0); Manual Diff?? YES; Mean Corpuscular HGB CONC 32.9 g/dL (32.0-36.0); Mean Corpuscular Hemoglobin 31.3 pg (27.0-31.0); Mean Corpuscular Volume 95.2 fl (78.0-98.0); Mean Platelet Volume 9.6 fL (7.4-10.4); Platelet Count 127 10x3/uL (130-400); RBC Distribution Width 14.7 % (11.5-14.5); White Blood Cell (WBC) Count 11.6 10x3/uL (4.8-10.8)
[2023-10-31 06:06] LABS: Anion Gap 14 mmol/L (10-20); BUN (Urea Nitrogen) 36 mg/dL (8.4-25.7); Calc. Creatinine Clearance 214 mL/min (70-130); Carbon Dioxide 26 mmol/L (23-31); Chloride 97 mmol/L (98-107); Estimated GFR 98; Glucose 186 mg/dL (80-115); Potassium 4.6 mmol/L (3.5-5.1); Sodium 132 mmol/L (136-145)
[2023-10-31] MEDS: Levothyroxine Sodium 125 MCG TAB PO SCH (06:11)
[2023-10-31] MEDS: HumaLOG 300 UNITS/3 ML VIAL SC PRN ×3 (06:13→17:27)
[2023-10-31 06:51] LABS: Delete Auto Diff?? YES
[2023-10-31 08:05] LABS: Band 15 % (5-11); CellaVision Operator ID LAB.GE; Eosinophils 1 % (0-10); Lymphocytes 5 % (21-51); Metamyelocyte 4 % (0-0); Monocytes 5 % (0-10); Myelocyte 2 % (0-0); Neutrophil 66 % (42-75); Platelet Adequacy Comment Platelets Decreased; Polychromasia SLIGHT = 2-3 cells HPF (0-2); Reactive Lymphocytes 1 % (0-10); Total Cell Count 102
[2023-10-31] MEDS ORDERED: Fluticasone Propionate Nasal Spray 16 gm Bottle NASAL SCH ×2 (09:30)
[2023-10-31] MEDS ORDERED: Loratadine 10 MG TAB PO SCH (09:30)
[2023-10-31] MEDS: HYDROcodone/Acetaminophen 7.5/325 mg Tablet PO PRN (10:16)
[2023-10-31] MEDS: sulfaSALAzine 500 MG TAB PO SCH ×2 (10:17→20:56)
[2023-10-31] MEDS: Gabapentin 300 MG CAP PO SCH ×3 (10:17→20:56)
[2023-10-31] MEDS: Senokot S 8.6-50 MG TAB PO SCH ×2 (10:18→20:55)
[2023-10-31] MEDS: Polyethylene Glycol 3350 17 GM Packet PO SCH (10:18)
[2023-10-31] MEDS: Loratadine 10 MG TAB PO SCH (10:23)
[2023-10-31] MEDS: Fluticasone Propionate Nasal Spray 16 gm Bottle NASAL SCH (10:23)
[2023-10-31] MEDS: Lisinopril 10 MG TAB PO SCH (11:28)
[2023-10-31] MEDS: Ondansetron ODT 4 MG TAB PO PRN (11:55)
[2023-10-31] MEDS: Atorvastatin Calcium 10 MG TAB PO SCH (20:56)
[2023-10-31] MEDS ORDERED: Sodium Chloride 0.9% 1,000 ML IV SCH (22:45)
[2023-11-01 06:05] LABS: Anion Gap 19 mmol/L (10-20); BUN (Urea Nitrogen) 57 mg/dL (8.4-25.7); Calc. Creatinine Clearance 71 mL/min (70-130); Calcium 9.1 mg/dL (7.8-10.44); Carbon Dioxide 24 mmol/L (23-31); Chloride 92 mmol/L (98-107); Estimated GFR 29; Glucose 175 mg/dL (80-115); Potassium 5.9 mmol/L (3.5-5.1); Sodium 129 mmol/L (136-145)
[2023-11-01] MEDS: Levothyroxine Sodium 125 MCG TAB PO SCH (06:07)
[2023-11-01] MEDS: HumaLOG 300 UNITS/3 ML VIAL SC PRN ×2 (06:25→12:11)
[2023-11-01] MEDS: Gabapentin 300 MG CAP PO SCH (08:00)
[2023-11-01] MEDS: Fluticasone Propionate Nasal Spray 16 gm Bottle NASAL SCH (08:01)
[2023-11-01] MEDS: sulfaSALAzine 500 MG TAB PO SCH (08:01)
[2023-11-01] MEDS: Loratadine 10 MG TAB PO SCH (08:01)
[2023-11-01] MEDS: Senokot S 8.6-50 MG TAB PO SCH ×2 (08:02→21:19)
[2023-11-01] MEDS: Polyethylene Glycol 3350 17 GM Packet PO SCH (08:02)
[2023-11-01] MEDS ORDERED: Sodium Chloride 0.9% 1,000 ML IV SCH (10:30)
[2023-11-01] MEDS ORDERED: Sodium Chloride 0.9% 500 ML IV SCH (10:45)
[2023-11-01] MEDS ORDERED: LOKELMA 10 GM PACKET PO SCH (10:45)
[2023-11-01] MEDS: Albumin 25% 25 GM/100 ML BOT IVPB SCH (10:58)
[2023-11-01] MEDS: Sodium Chloride 0.9% 1,000 ML IV SCH (12:11)
[2023-11-01] MEDS ORDERED: Hydrocortisone Sod Succ/PF 100 mg/2 ml Vial IVP SCH (15:15)
[2023-11-01] MEDS: Acetaminophen 325 MG TAB PO PRN ×2 (15:45→21:19)
[2023-11-01 18:57] LABS: Anion Gap 19 mmol/L (10-20); BUN (Urea Nitrogen) 69 mg/dL (8.4-25.7); Calc. Creatinine Clearance 74 mL/min (70-130); Calcium 8.9 mg/dL (7.8-10.44); Carbon Dioxide 20 mmol/L (23-31); Chloride 94 mmol/L (98-107); Estimated GFR 30; Glucose 136 mg/dL (80-115); Potassium 5.4 mmol/L (3.5-5.1); Sodium 128 mmol/L (136-145)
[2023-11-01] MEDS: Atorvastatin Calcium 10 MG TAB PO SCH (21:19)
[2023-11-02 00:25] LABS: Bacteria/HPF None Seen HPF (None Seen); Bilirubin Negative (Negative); Blood, Urine Negative (Negative); CAUTI Indications for Culture Spinal Cord Injury; Clarity Turbid (Clear); Glucose, Urine (Dipstick) Normal (Negative); Ketone, Urine Negative (Negative); Leukocyte 75 Leu/uL (Negative); Nitrite Negative (Negative); Protein, Urine (Dipstick) 20 mg/dL (Neg-Trace); Renal Epithelial 0-3 HPF (None Seen); Specific Gravity, Urine 1.017 (1.002-1.036); Urobilinogen Normal mg/dL (Less than 2)
[2023-11-02 00:26] LABS: Urine Culture Reflex Yes Yes
[2023-11-02 00:36] LABS: Potassium, Urine 97.2 mmol/L; Sodium, Urine Less than 20 mmol/L (Not Available)
[2023-11-02] MEDS: Acetaminophen 325 MG TAB PO PRN ×3 (01:57→16:11)
[2023-11-02] MEDS: Sodium Chloride 0.9% 1,000 ML IV SCH ×3 (01:58→21:20)
[2023-11-02 05:26] LABS: #Eosinphils 0.2 thou/uL (0.0-0.7); #Monocytes 0.8 thou/uL (0.11-0.59); #Neutrophils 8.6 thou/uL (1.40-6.50); %Basophils 0.2 % (0.0-1.0); %Eosinophils 1.7 % (0.0-10.0); %Lymphocytes 13.3 % (21.0-51.0); %Monocytes 7.3 % (0.0-10.0); %Neutrophils 74.7 % (42.0-75.0); Hemoglobin 12.2 g/dL (14.0-18.0); Mean Corpuscular HGB CONC 33.9 g/dL (32.0-36.0); Mean Corpuscular Hemoglobin 32.8 pg (27.0-31.0); Mean Corpuscular Volume 96.8 fl (78.0-98.0); Mean Platelet Volume 10.2 fL (7.4-10.4); Platelet Count 105 10x3/uL (130-400); RBC Distribution Width 14.5 % (11.5-14.5); Red Blood Cell (RBC) Count 3.72 mill/uL (4.70-6.10); White Blood Cell (WBC) Count 11.5 10x3/uL (4.8-10.8)
[2023-11-02] MEDS ORDERED: traMADol HCl 50 MG TAB PO SCH (05:30)
[2023-11-02] MEDS: Levothyroxine Sodium 125 MCG TAB PO SCH (05:33)
[2023-11-02] MEDS: HumaLOG 300 UNITS/3 ML VIAL SC PRN ×2 (05:34→17:45)
[2023-11-02 05:41] LABS: Lactic Acid 1.2 mmol/L (0.5-2.2)
[2023-11-02 05:48] LABS: Anion Gap 14 mmol/L (10-20); BUN (Urea Nitrogen) 66 mg/dL (8.4-25.7); Calc. Creatinine Clearance 132 mL/min (70-130); Calcium 8.8 mg/dL (7.8-10.44); Carbon Dioxide 24 mmol/L (23-31); Chloride 94 mmol/L (98-107); Estimated GFR 60; Glucose 156 mg/dL (80-115); Potassium 4.3 mmol/L (3.5-5.1); Sodium 128 mmol/L (136-145)
[2023-11-02] MEDS ORDERED: Sodium Chloride 0.9% 1,000 ML IV SCH (08:32)
[2023-11-02] MEDS: Fluticasone Propionate Nasal Spray 16 gm Bottle NASAL SCH (08:41)
[2023-11-02] MEDS: Loratadine 10 MG TAB PO SCH (08:41)
[2023-11-02] MEDS: Polyethylene Glycol 3350 17 GM Packet PO SCH (08:42)
[2023-11-02] MEDS: Senokot S 8.6-50 MG TAB PO SCH ×2 (08:43→20:20)
[2023-11-02] MEDS: Albumin 25% 25 GM/100 ML BOT IVPB SCH (10:58)
[2023-11-02] MEDS: HYDROcodone/Acetaminophen 5/325 mg Tablet PO PRN (17:44)
[2023-11-02] MEDS: guaiFENesin/Codeine 200 mg/20 mg 10 ml Cup PO PRN (17:44)
[2023-11-02] MEDS: Ipratropium/Albuterol 3 ML NEB NEB SCH (19:31)
[2023-11-02] MEDS: Atorvastatin Calcium 10 MG TAB PO SCH (20:19)
[2023-11-02] MEDS: Ciprofloxacin 500 MG TAB PO SCH (20:19)
[2023-11-03] MEDS: HYDROcodone/Acetaminophen 5/325 mg Tablet PO PRN ×3 (01:51→16:21)
[2023-11-03 04:16] LABS: Anion Gap 12 mmol/L (10-20); BUN (Urea Nitrogen) 47 mg/dL (8.4-25.7); Calc. Creatinine Clearance 225 mL/min (70-130); Carbon Dioxide 25 mmol/L (23-31); Chloride 96 mmol/L (98-107); Estimated GFR 100; Glucose 142 mg/dL (80-115); Potassium 4.2 mmol/L (3.5-5.1); Sodium 129 mmol/L (136-145)
[2023-11-03 04:30] LABS: #Eosinphils 0.2 thou/uL (0.0-0.7); #Monocytes 0.9 thou/uL (0.11-0.59); #Neutrophils 7.3 thou/uL (1.40-6.50); %Basophils 0.2 % (0.0-1.0); %Eosinophils 2.4 % (0.0-10.0); %Monocytes 9.3 % (0.0-10.0); %Neutrophils 73.4 % (42.0-75.0); Hemoglobin 11.5 g/dL (14.0-18.0); Mean Corpuscular HGB CONC 33.8 g/dL (32.0-36.0); Mean Corpuscular Hemoglobin 32.3 pg (27.0-31.0); Mean Corpuscular Volume 95.5 fl (78.0-98.0); Mean Platelet Volume 10.6 fL (7.4-10.4); Platelet Count 108 10x3/uL (130-400); RBC Distribution Width 14.4 % (11.5-14.5); Red Blood Cell (RBC) Count 3.56 mill/uL (4.70-6.10)
[2023-11-03] MEDS: Levothyroxine Sodium 125 MCG TAB PO SCH (06:08)
[2023-11-03] MEDS: Ciprofloxacin 500 MG TAB PO SCH ×2 (06:09→21:24)
[2023-11-03] MEDS: Sodium Chloride 0.9% 1,000 ML IV SCH ×2 (06:09→08:41)
[2023-11-03] MEDS: Ipratropium/Albuterol 3 ML NEB NEB SCH ×2 (07:24→19:00)
[2023-11-03] MEDS: Fluticasone Propionate Nasal Spray 16 gm Bottle NASAL SCH (08:41)
[2023-11-03] MEDS: Loratadine 10 MG TAB PO SCH (08:42)
[2023-11-03] MEDS: guaiFENesin/Codeine 200 mg/20 mg 10 ml Cup PO PRN ×2 (08:46→21:24)
[2023-11-03] MEDS: Polyethylene Glycol 3350 17 GM Packet PO SCH (08:47)
[2023-11-03] MEDS: Senokot S 8.6-50 MG TAB PO SCH ×2 (08:48→21:20)
[2023-11-03] MEDS: Atorvastatin Calcium 10 MG TAB PO SCH (21:25)
[2023-11-03] MEDS: Acetaminophen 325 MG TAB PO PRN (21:25)
[2023-11-03] MEDS: sulfaSALAzine 500 MG TAB PO SCH (21:25)
[2023-11-04] MEDS: Sodium Chloride 0.9% 1,000 ML IV SCH (05:05)
[2023-11-04] MEDS: Ciprofloxacin 500 MG TAB PO SCH (06:02)
[2023-11-04] MEDS: Levothyroxine Sodium 125 MCG TAB PO SCH (06:02)
[2023-11-04] MEDS: Ipratropium/Albuterol 3 ML NEB NEB SCH (07:14)
[2023-11-04] MEDS: HYDROcodone/Acetaminophen 5/325 mg Tablet PO PRN (08:33)
[2023-11-04] MEDS: Loratadine 10 MG TAB PO SCH (08:34)
[2023-11-04] MEDS: sulfaSALAzine 500 MG TAB PO SCH (08:34)
[2023-11-04] MEDS: Polyethylene Glycol 3350 17 GM Packet PO SCH (08:35)
[2023-11-04] MEDS: Senokot S 8.6-50 MG TAB PO SCH (08:35)
[2023-11-04] MEDS: Fluticasone Propionate Nasal Spray 16 gm Bottle NASAL SCH (08:37)
[2023-11-04 09:08] VITALS: BP 133/76; TEMP 98.2
== END 2023-11-04 13:35 | disposition home or self-care (01) | DRG 28 ==
LOC: 2SE 18:52 → CCU 10-22 10:12 → MSONC 10-23 12:49
PROVIDERS: ADMIT Family Medicine; ATTEND Internal Medicine
PROC: 06H03DZ Insertion of Intraluminal Device into Inferior Vena Cava, Percutaneous Approach (ICD-10-PCS; 2023-10-16)
PROC: 00NX0ZZ Release Thoracic Spinal Cord, Open Approach (ICD-10-PCS; principal; 2023-10-22)
PROC: 00BX0ZZ Excision of Thoracic Spinal Cord, Open Approach (ICD-10-PCS; 2023-10-22)
PROC: 4A033R1 Measurement of Arterial Saturation, Peripheral, Percutaneous Approach (ICD-10-PCS; 2023-10-22)
PROC: 3E033XZ Introduction of Vasopressor into Peripheral Vein, Percutaneous Approach (ICD-10-PCS; 2023-10-22)
PROC: 0PB40ZX Excision of Thoracic Vertebra, Open Approach, Diagnostic (ICD-10-PCS; 2023-10-22)
PROC: 30233J1 Transfusion of Nonautologous Serum Albumin into Peripheral Vein, Percutaneous Approach (ICD-10-PCS; 2023-11-01)
DX: C70.1 Malignant neoplasm of spinal meninges (principal); I26.92 Saddle embolus of pulmonary artery without acute cor pulmonale; I82.402 Acute embolism and thrombosis of unspecified deep veins of left lower extremity; N17.9 Acute kidney failure, unspecified; E87.1 Hypo-osmolality and hyponatremia; N39.0 Urinary tract infection, site not specified; Z68.43 Body mass index [BMI] 50.0-59.9, adult; G82.20 Paraplegia, unspecified; G95.29 Other cord compression; E66.01 Morbid (severe) obesity due to excess calories; G47.33 Obstructive sleep apnea (adult) (pediatric); E78.5 Hyperlipidemia, unspecified; J44.9 Chronic obstructive pulmonary disease, unspecified; L40.50 Arthropathic psoriasis, unspecified; F17.290 Nicotine dependence, other tobacco product, uncomplicated; E03.9 Hypothyroidism, unspecified; B96.20 Unspecified Escherichia coli [E. coli] as the cause of diseases classified elsewhere; M48.061 Spinal stenosis, lumbar region without neurogenic claudication; I12.9 Hypertensive chronic kidney disease with stage 1 through stage 4 chronic kidney disease, or unspecified chronic kidney disease; N18.30 Chronic kidney disease, stage 3 unspecified; D72.829 Elevated white blood cell count, unspecified; E11.22 Type 2 diabetes mellitus with diabetic chronic kidney disease; M48.07 Spinal stenosis, lumbosacral region; M48.8X4 Other specified spondylopathies, thoracic region; I95.9 Hypotension, unspecified; E87.5 Hyperkalemia; J30.2 Other seasonal allergic rhinitis; R53.81 Other malaise; R33.9 Retention of urine, unspecified; Z79.890 Hormone replacement therapy; Z79.899 Other long term (current) drug therapy; Z98.890 Other specified postprocedural states; Z90.89 Acquired absence of other organs; Z79.01 Long term (current) use of anticoagulants
CPT/HCPCS: 36415; 36416; 37191; 71045; 76770; 80048; 81001; 82436; 82533; 82805; 83036; 83605; 83735; 84133; 84145; 84300; 84443; 85025; 85610; 85730; 86850; 86900; 86901; 87077; 87086; 87186; 88307; 88323; 93005; 93010; 93306; 93970; 94640; C1769; C1880; C1889; C1894; J0171; J0690; J1100; J1650; J1720; J1815; J2001; J2272; J2405; J2704; J3010; J3370; J3490; J7030; J7050; J7620; P9047; Q0162; Q9967; S0020

== ENCOUNTER 2024-01-22 09:14 | Outpatient (CLI) | payer MEDICARE | END 2024-01-22 09:15 | disposition home or self-care (01) | LOC: RAD 09:14 | PROVIDERS: ATTEND Neurological Surgery | DX: M54.6 Pain in thoracic spine (principal); M51.34 Other intervertebral disc degeneration, thoracic region | CPT/HCPCS: 72072 ==

== ENCOUNTER 2025-07-23 11:16 | Outpatient (CLI) | payer MEDICARE, OTHER | END 2025-07-23 11:17 | disposition home or self-care (01) | LOC: DTY/OP 11:16 | PROVIDERS: ATTEND Family Medicine | DX: E11.9 Type 2 diabetes mellitus without complications (principal) | CPT/HCPCS: 97802 ==